=== PATIENT | female | born 1955 | race Caucasian/White ===

== ENCOUNTER 2019-09-05 08:26 | Inpatient (IN) ==
[~2019-09-05 08:26] MED LIST: Bacitracin 50,000 UNIT, Polymyxin B Sulfate 500,000 UNIT, Sodium Chloride IRRigation 1,... IR ONE
[2019-09-05] MEDS ORDERED: *HR* Midazolam HCl 2 MG/2 ML VIAL ONE (08:48)
[2019-09-05] MEDS ORDERED: *HR* FentaNYL (PF) 100 MCG/2 ML VIAL ONE ×2 (08:48→16:00)
[2019-09-05] MEDS ORDERED: Propofol 500 MG/50 ML INFUS..BTL ONE (08:54)
[2019-09-05] MEDS ORDERED: Lidocaine -MPF 2% 2 ML VIAL ONE (08:55)
[2019-09-05] MEDS ORDERED: Dexamethasone 4 MG/ML VIAL ONE (08:55)
[2019-09-05] MEDS ORDERED: *HR* Rocuronium Bromide 50 MG/5 ML VIAL ONE (08:55)
[2019-09-05] MEDS ORDERED: *HR* Succinylcholine 200 MG/10 ML VIAL IVP ONE (08:55)
[2019-09-05] MEDS ORDERED: Lidocaine HCL 4 ML Topical Solution (Laryng-O-Jet Kit Sterile Pak) TP ONE (08:55)
[2019-09-05] MEDS ORDERED: *HR* OxyCODONE Immed Rel 5 MG TABLET PO PRN (08:57)
[2019-09-05] MEDS ORDERED: Morphine Sulfate 2 MG/ML SYRINGE IVP PRN (08:57)
[2019-09-05] MEDS ORDERED: Acetaminophen IV 1,000 MG/100 ML INFUS..BTL IVPB ONE (08:57)
[2019-09-05] MEDS ORDERED: Ondansetron 4 MG/2 ML VIAL IVP ONE (08:58)
[2019-09-05] MEDS ORDERED: Albuterol 2.5 MG/3 ML NEBULIZER IH PRN (09:10)
[2019-09-05] MEDS ORDERED: CeFAZolin Syr 2,000MG/20 ML 2,000 MG/20 ML SYRINGE IVPB ONE (09:10)
[2019-09-05] MEDS: Ringers Solution, Lactated 1,000 ML IVC SCH ×2 (09:32→17:18)
[2019-09-05] MEDS ORDERED: *HR* PHENYLEPHRINE 1,000 MCG/10 ML SYRINGE IVP ONE (13:17)
[2019-09-05] MEDS ORDERED: *HR* HYDROMORPHONE 2 MG/ML VIAL ONE (15:38)
[2019-09-05] MEDS ORDERED: Naloxone 0.4 MG/ML INJ IVP PRN (17:32)
[2019-09-05] MEDS ORDERED: NON-FORMULARY MEDICATION 1 EACH EACH (Diclofenac Sodium 1 APPL) TD SCH (17:32)
[2019-09-05] MEDS ORDERED: Ondansetron 4 MG/2 ML VIAL IVP PRN (17:32)
[2019-09-05] MEDS ORDERED: *HR* LORazepam 0.5 MG TABLET PO PRN (17:32)
[2019-09-05] MEDS: cloNIDine HCl 0.1 MG TABLET PO SCH (19:58)
[2019-09-05] MEDS: Gabapentin 400 MG CAPSULE PO SCH (19:58)
[2019-09-05] MEDS: Melatonin 3 MG TABLET PO SCH (19:59)
[2019-09-05] MEDS ORDERED: NON-FORMULARY MEDICATION 1 EACH EACH (Metformin Hcl [Metformin Hcl Er] 1,000 MG) PO SCH (21:00)
[2019-09-05] MEDS: *HR* OxyCODONE Immed Rel 5 MG TABLET PO PRN (23:28)
[2019-09-06] MEDS: *HR* HYDROcodone/Acet 5/325 mg TABLET PO PRN (02:21)
[2019-09-06] MEDS: Ringers Solution, Lactated 1,000 ML IVC SCH (04:22)
[2019-09-06] MEDS: *HR* OxyCODONE Immed Rel 5 MG TABLET PO PRN ×5 (04:34→22:33)
[2019-09-06] MEDS ORDERED: *HR* Dextrose 50 % in Water (Syg) 50 ML SYRINGE IVP PRN (08:15)
[2019-09-06] MEDS ORDERED: D5% in Water 1,000 ML IVC PRN (08:15)
[2019-09-06] MEDS ORDERED: Dextrose Gel 15 GM/37.5 ML TUBE PO PRN ×2 (08:15)
[2019-09-06] MEDS: FLUoxetine 20 MG CAPSULE PO SCH (08:46)
[2019-09-06] MEDS: Gabapentin 400 MG CAPSULE PO SCH ×2 (08:46→21:23)
[2019-09-06] MEDS: *HR* Metformin 500 MG TABLET PO SCH ×2 (08:46→17:10)
[2019-09-06] MEDS: Loratadine 10 MG TABLET PO SCH (08:46)
[2019-09-06] MEDS: Insulin LISPRO 300 UNITS/3 ML VIAL SQ SCH ×3 (11:42→21:24)
[2019-09-06] MEDS: Acetaminophen 325 MG TABLET PO PRN (12:46)
[2019-09-06] MEDS: cloNIDine HCl 0.1 MG TABLET PO SCH (21:23)
[2019-09-06] MEDS: Melatonin 3 MG TABLET PO SCH (21:23)
[2019-09-07] MEDS: *HR* OxyCODONE Immed Rel 5 MG TABLET PO PRN ×2 (03:18→18:36)
[2019-09-07] MEDS: Acetaminophen 325 MG TABLET PO PRN (04:48)
[2019-09-07] MEDS: FLUoxetine 20 MG CAPSULE PO SCH (08:57)
[2019-09-07] MEDS: *HR* Metformin 500 MG TABLET PO SCH ×2 (08:57→18:32)
[2019-09-07] MEDS: Loratadine 10 MG TABLET PO SCH (08:58)
[2019-09-07] MEDS: Gabapentin 400 MG CAPSULE PO SCH ×2 (08:58→21:24)
[2019-09-07] MEDS: Insulin LISPRO 300 UNITS/3 ML VIAL SQ SCH ×4 (08:58→20:56)
[2019-09-07] MEDS: Ringers Solution, Lactated 1,000 ML IVC SCH ×3 (08:59→21:24)
[2019-09-07 09:38] LABS: Basophils % 0.2 %; Eosinophils # 0.1 K/mcL (0.0-0.6); Eosinophils % 0.5 %; Hematocrit 26.2 % (35.3-44.9); Immature Granulocytes % 0.5 % (0-4); Lymphocytes # 1.7 K/mcL (0.6-4.6); Lymphocytes % 15.5 %; Mean Corpuscular HGB Conc 31.3 g/dL (31.6-35.5); Mean Corpuscular Hemoglobin 25.6 pg (28.0-33.3); Mean Corpuscular Volume 81.9 fL (83.0-100.0); Mean Platelet Volume 9.4 fL (9.4-12.4); Monocytes % 8.7 %; Neutrophils # 8.2 K/mcL (1.6-8.9); Platelet Count 335 K/mcL (140-400); Red Cell Distribution Width 15.2 % (11.5-14.5); Segmented Neutrophils % 74.6 %
[2019-09-07 09:47] LABS: Hemoglobin 8.2 g/dL (11.5-15.4)
[2019-09-07 09:59] LABS: BUN/Creatinine Ratio 13 (6-26); Blood Urea Nitrogen 9 mg/dL (8-23); Calcium 8.3 mg/dL (8.6-10.3); Carbon Dioxide 24 mEq/L (23-29); Chloride 103 mEq/L (98-107); Glucose 226 mg/dL (70-105); Osmolality,Calculated 288 (280-300); Potassium 3.6 mEq/L (3.5-5.1); Sodium 136 mEq/L (136-145); eGFR For African Americans > 60 (> 60); eGFR For Non-African Americans > 60 (> 60)
[2019-09-07] MEDS: cloNIDine HCl 0.1 MG TABLET PO SCH (21:24)
[2019-09-07] MEDS: Melatonin 3 MG TABLET PO SCH (21:24)
[2019-09-07] MEDS: *HR* HYDROcodone/Acet 5/325 mg TABLET PO PRN (21:25)
[2019-09-08] MEDS: *HR* OxyCODONE Immed Rel 5 MG TABLET PO PRN (06:15)
[2019-09-08] MEDS: *HR* Metformin 500 MG TABLET PO SCH (09:20)
[2019-09-08] MEDS: Gabapentin 400 MG CAPSULE PO SCH (09:21)
[2019-09-08] MEDS: Loratadine 10 MG TABLET PO SCH (09:21)
[2019-09-08] MEDS: *HR* HYDROcodone/Acet 5/325 mg TABLET PO PRN (09:21)
[2019-09-08] MEDS: FLUoxetine 20 MG CAPSULE PO SCH (09:21)
[2019-09-08] MEDS: Insulin LISPRO 300 UNITS/3 ML VIAL SQ SCH (09:30)
[2019-09-08] MEDS: Ringers Solution, Lactated 1,000 ML IVC SCH (09:31)
[2019-09-08 11:18] VITALS: BP 145/88
== END 2019-09-08 14:00 | disposition home health service (06) | DRG 454 ==
LOC: SAMDAY 08:26 → 3NENU 17:43
PROVIDERS: ADMIT Orthopaedic Surgery Orthopaedic Surgery of the Spine; ATTEND Orthopaedic Surgery Orthopaedic Surgery of the Spine

== ENCOUNTER 2021-10-09 19:38 | Inpatient (IN) ==
[2021-10-09] MEDS ORDERED: *HR* Labetalol 20 MG/4 ML SYRINGE IVP ONE (20:32)
[2021-10-09 21:08] LABS: Basophils % 0.4 %; Eosinophils # 0.2 K/mcL (0.0-0.6); Eosinophils % 2.3 %; Hematocrit 39.2 % (35.3-44.9); Hemoglobin 12.5 g/dL (11.5-15.4); Immature Granulocytes % 0.2 % (0-4); Lymphocytes # 2.7 K/mcL (0.6-4.6); Lymphocytes % 28.5 %; Mean Corpuscular HGB Conc 31.9 g/dL (31.6-35.5); Mean Corpuscular Hemoglobin 27.9 pg (28.0-33.3); Mean Corpuscular Volume 87.5 fL (83.0-100.0); Mean Platelet Volume 9.6 fL (9.4-12.4); Monocytes # 0.6 K/mcL (0.0-1.3); Monocytes % 6.3 %; Neutrophils # 5.8 K/mcL (1.6-8.9); Platelet Count 360 K/mcL (140-400); Red Blood Count 4.48 M/mcL (3.82-4.97); Segmented Neutrophils % 62.3 %; White Blood Count 9.3 K/mcL (4.3-11.1)
[2021-10-09 21:17] LABS: INR 0.9; Prothrombin Time 10.5 Seconds (9.4-12.1)
[2021-10-09 21:20] LABS: Activated Partial Thrombo Time 26.9 Seconds (26.0-36.0)
[2021-10-09 22:10] LABS: Alanine Aminotransferase 11 Units/L (7-52); Albumin 4.1 g/dL (3.5-5.7); Albumin/Globulin Ratio 1.5 (1.1-2.2); Alkaline Phosphatase 85 Units/L (34-104); Aspartate Amino Transferase 10 Units/L (13-39); BUN/Creatinine Ratio 17 (6-26); Bilirubin,Direct 0.1 mg/dL (0.0-0.2); Bilirubin,Indirect 0.2 mg/dL (0.0-1.0); Bilirubin,Total 0.3 mg/dL (0.3-1.0); Blood Urea Nitrogen 11 mg/dL (8-23); Calcium 9.2 mg/dL (8.6-10.3); Carbon Dioxide 27 mEq/L (23-29); Chloride 105 mEq/L (98-107); Ethanol < 10 mg/dL (Less than 10); Globulin 2.8 g/dL (2.4-3.5); Glucose 117 mg/dL (70-105); Osmolality,Calculated 290 (280-300); Potassium 4.1 mEq/L (3.5-5.1); Sodium 140 mEq/L (136-145); Total Protein 6.9 g/dL (6.4-8.9); eGFR For African Americans > 60 (> 60); eGFR For Non-African Americans > 60 (> 60)
[2021-10-09 22:23] LABS: Troponin I 0.05 ng/mL (< 0.04)
[2021-10-09] MEDS ORDERED: 0.9 % Sodium Chloride 1,000 ML IV ONE (22:54)
[2021-10-10 00:17] LABS: Bacteria,Urine Few per hpf (None-Few); Bilirubin,Urine Negative (Negative); Blood,Urine Negative (Negative); Clarity,Urine Clear (Clear); Color,Urine Yellow (Yellow); Glucose,Urine (UA) Normal (Normal); Ketones,Urine Negative (Negative); Leukocyte Esterase,Urine Moderate (Negative); Mucus,Urine Few per lpf (None-Few); Nitrite,Urine Negative (Negative); Protein,Urine 30 mg/dL (Neg-Trace); Specific Gravity,Urine 1.025 (1.010-1.025); Squamous Epithelial Cell,Urine Few per hpf (None-Few); Urobilinogen,Urine Normal (Normal)
[2021-10-10] MEDS ORDERED: cefTRIAXone 1,000 MG in Water for inj. (sterile) 10 ML IVP ONE (00:33)
[2021-10-10 00:42] LABS: Amphetamine Screen,Urine Negative ng/mL (Cutoff=1000); Barbiturate Screen,Urine Negative ng/mL (Cutoff=200); Benzodiazepines Screen,Urine Negative ng/mL (Cutoff=200); Cannabinoid Screen,Urine Negative ng/mL (Cutoff = 50); Cocaine Screen,Urine Negative ng/mL (Cutoff= 300); Opiate Screen,Urine Positive ng/mL (Cutoff=300); Phencyclidine Screen,Urine Negative ng/mL (Cutoff=25)
[2021-10-10] MEDS ORDERED: Perflutren Lipid Microsphere 1.3 ML in 0.9 % Sodium Chloride 8.7 ML IVP PRN ×2 (02:35→15:30)
[2021-10-10] MEDS ORDERED: Aspirin Enteric Coated 325 MG Tablet PO ONE (02:36)
[2021-10-10] MEDS ORDERED: Ondansetron 4 MG/2 ML VIAL IVP PRN (03:12)
[2021-10-10] MEDS ORDERED: Naloxone 0.4 MG/ML INJ IVP PRN (03:12)
[2021-10-10] MEDS ORDERED: Acetaminophen 325 MG TABLET PO PRN (03:12)
[2021-10-10] MEDS ORDERED: *HR* LORazepam 0.5 MG TABLET PO PRN (03:38)
[2021-10-10] MEDS ORDERED: cloNIDine HCL 0.1 MG TABLET PO SCH (03:45)
[2021-10-10 04:55] LABS: Basophils % 0.3 %; Eosinophils # 0.2 K/mcL (0.0-0.6); Eosinophils % 1.6 %; Hematocrit 37.2 % (35.3-44.9); Immature Granulocytes % 0.2 % (0-4); Lymphocytes # 2.5 K/mcL (0.6-4.6); Mean Corpuscular HGB Conc 32.3 g/dL (31.6-35.5); Mean Corpuscular Hemoglobin 28.5 pg (28.0-33.3); Mean Corpuscular Volume 88.4 fL (83.0-100.0); Mean Platelet Volume 10.1 fL (9.4-12.4); Monocytes # 0.6 K/mcL (0.0-1.3); Monocytes % 5.7 %; Neutrophils # 7.1 K/mcL (1.6-8.9); Platelet Count 365 K/mcL (140-400); Red Blood Count 4.21 M/mcL (3.82-4.97); Red Cell Distribution Width 13.1 % (11.5-14.5); Segmented Neutrophils % 68.2 %; White Blood Count 10.3 K/mcL (4.3-11.1)
[2021-10-10 04:56] LABS: Chol/HDL Ratio 5.9 (0-4.9)
[2021-10-10 05:08] LABS: Prothrombin Time 10.7 Seconds (9.4-12.1)
[2021-10-10 05:11] LABS: BUN/Creatinine Ratio 15 (6-26); Blood Urea Nitrogen 10 mg/dL (8-23); Carbon Dioxide 26 mEq/L (23-29); Chloride 105 mEq/L (98-107); Ethanol < 10 mg/dL (Less than 10); Glucose 127 mg/dL (70-105); Osmolality,Calculated 289 (280-300); Potassium 3.5 mEq/L (3.5-5.1); Sodium 139 mEq/L (136-145); Troponin I 0.05 ng/mL (< 0.04); eGFR For African Americans > 60 (> 60); eGFR For Non-African Americans > 60 (> 60)
[2021-10-10 05:16] LABS: Thyroid Stimulating Hormone 2.824 mcIU/mL (0.340-5.600)
[2021-10-10 05:25] LABS: Folate 21.2 ng/mL (3.0-16.0)
[2021-10-10] MEDS: Loratadine 10 MG TABLET PO SCH (09:42)
[2021-10-10] MEDS: *HR* Metformin 500 MG TABLET PO SCH ×2 (09:42→21:05)
[2021-10-10] MEDS: *HR* Enoxaparin 40 MG/0.4 ML SYRINGE SQ SCH (09:42)
[2021-10-10 10:15] LABS: Estimated Average Glucose 143 mg/dl; Hemoglobin A1C 6.6 %
[2021-10-10] MEDS ORDERED: Isovue-370 500 ML BOTTLE IVP ONE (12:43)
[2021-10-10 12:45] LABS: Amphetamine Screen,Urine Negative ng/mL (Cutoff=1000); Barbiturate Screen,Urine Negative ng/mL (Cutoff=200); Benzodiazepines Screen,Urine Negative ng/mL (Cutoff=200); Cannabinoid Screen,Urine Negative ng/mL (Cutoff = 50); Cocaine Screen,Urine Negative ng/mL (Cutoff= 300); Opiate Screen,Urine Negative ng/mL (Cutoff=300); Phencyclidine Screen,Urine Negative ng/mL (Cutoff=25)
[2021-10-10] MEDS: cefTRIAXone 1,000 MG in 0.9 % Sodium Chloride Mini Bag 100 ML IVPB SCH (16:37)
[2021-10-10] MEDS: Melatonin 3 MG TABLET PO SCH (21:05)
[2021-10-11] MEDS ORDERED: Aspirin 325 MG TABLET PO SCH (09:00)
[2021-10-11] MEDS ORDERED: Aspirin 81 MG TAB.CHEW PO SCH (09:00)
[2021-10-11] MEDS: *HR* Metformin 500 MG TABLET PO SCH ×2 (10:09→20:57)
[2021-10-11] MEDS: Loratadine 10 MG TABLET PO SCH (10:09)
[2021-10-11] MEDS: *HR* Enoxaparin 40 MG/0.4 ML SYRINGE SQ SCH (10:10)
[2021-10-11] MEDS: FLUoxetine 20 MG CAPSULE PO SCH (10:16)
[2021-10-11] MEDS: cefTRIAXone 1,000 MG in 0.9 % Sodium Chloride Mini Bag 100 ML IVPB SCH (16:48)
[2021-10-11] MEDS: cloNIDine HCL 0.1 MG TABLET PO SCH ×2 (16:48→20:59)
[2021-10-11] MEDS: Melatonin 3 MG TABLET PO SCH (20:59)
[2021-10-12 07:10] VITALS: BP 128/73; PULSE 89; TEMP 98; O2SAT 100
[2021-10-12] MEDS: *HR* Enoxaparin 40 MG/0.4 ML SYRINGE SQ SCH (08:19)
[2021-10-12] MEDS: FLUoxetine 20 MG CAPSULE PO SCH (08:20)
[2021-10-12] MEDS: *HR* Metformin 500 MG TABLET PO SCH (08:20)
[2021-10-12] MEDS: cloNIDine HCL 0.1 MG TABLET PO SCH (08:21)
[2021-10-12] MEDS: Loratadine 10 MG TABLET PO SCH (08:21)
[2021-10-12] MEDS ORDERED: Aspirin 81 MG TAB.CHEW PO SCH (09:00)
[2021-10-12] MEDS: cefTRIAXone 1,000 MG in 0.9 % Sodium Chloride Mini Bag 100 ML IVPB SCH (10:46)
== END 2021-10-12 12:17 | disposition home health service (06) | DRG 65 ==
LOC: EMEROOARM 19:38 → 3BNU 19:38 → SUATTDRO 10-10 12:05
PROVIDERS: ADMIT Internal Medicine; ATTEND Internal Medicine